=== PATIENT | female | born 1950 | race Caucasian/White ===

== ENCOUNTER 2016-11-29 16:16 | Inpatient (IN) | payer MEDICARE ==
[~2016-11-29] VITALS: Ht 152.4 cm; Wt 65.9 kg
--- NOTE | ~2016-11-29 | PR ---
[place], [place] PROGRESS NOTE NAME: RALEIGH VENCES UNIT #: [id number] ROOM: 528 DOCTOR: SANIYA SCHROEDER MD BIRTHDATE: [birth year] DOS: 12/01/2016 SUBJECTIVE: The patient is headed for MRI study of her brain. She still continues to complain of numbness in her left face and left upper extremity off and on. No weakness or paralysis. OBJECTIVE: VITAL SIGNS: Blood pressure 141/62, heart rate 62 beats and breathing 20 times per minute, temperature 98 degrees Fahrenheit. GENERAL APPEARANCE: The patient is alert and oriented x 3, in no visible distress. HEENT AND NECK: Exam within normal limits. CARDIOVASCULAR SYSTEM: Heart rate is regular in rate and rhythm. S1 and S2 normally audible. LUNGS: Clear to auscultation. ABDOMEN: Soft, nontender. No obvious organomegaly. Bowel sounds are present. EXTREMITIES: Without significant cyanosis or edema. IMPRESSION: 1. No weakness or paralysis. She continues to complain of off and on numbness in her left face and left upper extremity. The patient does have small blood vessel disease in her brain, but carotid arterial Dopplers did not show any critical stenosis and I am waiting for MRI of the brain, which is being performed today and I am continuing her IV heparin. If MRI of the brain is normal, her heparin will be discontinued. I will also consider sending her to the Stroke Center at [facility] in case she shows some signs of weakness, but this morning, I had a good discussion with the patient and her and both denied the patient ever having a left-sided face droop or left upper or lower extremity weakness, just difficulty in walking and generalized weakness, but no seizures were observed and no obvious possibility of the patient being postictal. 2. Suspected transient ischemic attacks but not confirmed, no weakness or paralysis. 3. Benign essential hypertension with controlled blood pressures. 4. Generalized anxiety disorder. The patient has been started on buspirone. 5. Hypothyroidism. The patient is being treated with supplements. 6. The patient is also on physical therapy. [place], [place] PROGRESS NOTE NAME: RALEIGH VENCES UNIT #: [id number] ROOM: 528 DOCTOR: SANIYA SCHROEDER MD BIRTHDATE: [birth year] SANIYA SCHROEDER MD CM:PNCHIKA [id number] SANIYA SCHROEDER MD 12/01/16 2302 interface
--- NOTE | ~2016-11-29 | DS ---
[place], [place] DISCHARGE SUMMARY NAME: RALEIGH VENCES [facility] #: [id number] UNIT #: [id number] ROOM: 528 DOCTOR: SANIYA SCHROEDER MD BIRTHDATE: [birth year] DOS: 12/02/2016 DISCHARGE DIAGNOSES: 1. The patient with multiple plaque-like lesions predominantly in the white matter compatible with ischemic stroke, cannot rule out multiple sclerosis. 2. Recurrent numbness in left face, left upper extremity and left lower extremity with some difficulty in walking, which has improved. 3. Benign essential hypertension. 4. Generalized anxiety disorder. 5. Hypothyroidism. 6. History of hysterectomy. 7. History of gastroesophageal reflux disease and hiatal hernia. HOSPITAL COURSE: The patient presented with recurrent numbness in the left face, left upper extremity and left lower extremity with difficulty with walking, which started prior to coming to the hospital. The symptoms are going on for about a day prior to the patient coming to the Emergency Department. The patient's symptoms lasted only a few minutes at a time and she was quite anxious. CT scan of the head without contrast performed through the Emergency Department showed mild periventricular small vessel changes which are chronic. No acute abnormality. The patient was admitted and since there is recurrent symptoms continued, I have started on IV heparin, performed carotid arterial Dopplers, which showed less than 50% stenosis. An echocardiogram was performed, which did not show any source of thromboembolism. Finally, an MRI of the brain was performed, which showed multiple white matter plaques, possible ischemic strokes, but could not rule out multiple sclerosis. I called [facility] and spoke with Dr. Jacobs at the Stroke Center and I am transferring the patient under his care for further evaluation by a neurologist. We have no neurologist available at [facility] [place], where the patient is presently admitted. Case was discussed with him in full detail and will send him all testing on reports, and formal reports with the records going with the patient. The patient will be transferred by an ambulance in stable condition and will be continued on IV heparin. The patient's cardiac enzymes were also checked and were normal. LABORATORY DATA: CBC was normal. Blood cultures were negative. Serum electrolytes were normal. Lactic acid level was normal. The patient's last PTT was 68.3 on heparin. DISCHARGE MANAGEMENT: IV heparin protocol, lisinopril 5 mg daily, hydrochlorothiazide 25 mg daily, levothyroxine 50 mcg daily, Cymbalta 30 mg daily, atenolol 100 mg b.i.d., amitriptyline 75 mg daily, I have given patient buspirone starting this admission for anxiety 10 mg b.i.d. She was also kept on ceftriaxone 1 gram IV daily and she was already taking at home Vicodin twice a day as needed for pain. The patient is being transferred to [facility] Stroke Center under care of Dr. Jacobs. [place], [place] DISCHARGE SUMMARY NAME: RALEIGH VENCES UNIT #: [id number] ROOM: 528 DOCTOR: SANIYA SCHROEDER MD BIRTHDATE: [birth year] SANIYA SCHROEDER MD CM:DISCHARG [id number] [phone] SANIYA SCHROEDER MD 12/02/161943 interface
--- NOTE | ~2016-11-29 | WRIGHTHP ---
[place], [place] PATIENT HISTORY AND PHYSICAL EXAM NAME: RALEIGH VENCES [facility] #: [id number] UNIT #: [id number] ROOM: 528 DOCTOR: SANIYA SCHROEDER MD BIRTHDATE: [birth year] DOS: 11/29/2016 HISTORY OF PRESENT ILLNESS: The patient is a 66-year-old female with a past medical history of benign essential hypertension, hypothyroidism, hiatal hernia and gastroesophageal reflux disease, history of hysterectomy. The patient presented to the Emergency Department at [facility] with complaints of recurrent numbness involving her left face. Some family reported left-sided facial droop, some numbness in the left upper extremity off and on with weakness and left lower extremity weakness with difficulty with walking starting yesterday. The sensation lasted a few minutes and then resolved and after that she feels somewhat weak. The patient also has been quite anxious and does have anxiety issues, which have improved with use of Cymbalta. Apparently, she also complains of some blurring in her left eye. The patient recommended for admission and further management. After admission, I kept on aspirin. Check carotid arterial Dopplers and as she got recurrent symptoms of left-sided weakness and numbness. I also started on intravenous heparin. The patient states she feels like this when she is quite anxious. No chest pain, no shortness of breath. No other GI or urinary symptoms. The patient's diagnosed as having TIA in the Emergency Department and after which she was admitted to a monitored bed. SOCIAL HISTORY: Denies smoking cigarettes, alcohol and drug abuse. HOME MEDICATIONS: Lisinopril, hydrochlorothiazide, levothyroxine, Cymbalta, atenolol, amitriptyline. ALLERGIES: No known drug allergies. FAMILY HISTORY: Noncontributory. PHYSICAL EXAMINATION: GENERAL: Alert and oriented x3. HEENT AND NECK: Extraocular movements are intact. Sclerae are anicteric. Oral mucosa is moist and clean. No obvious facial weakness. Neck is supple without any lymphadenopathy. No thyromegaly. No JVD. No carotid arterial bruits. LUNGS: Clear to auscultation. No wheezing. No rhonchi. CARDIOVASCULAR SYSTEM: Heart rate is regular in rate and rhythm. S1 and S2 normally audible. No significant murmur or any other abnormal cardiac sounds. ABDOMEN: Soft, nontender. No obvious organomegaly. Bowel sounds are present. No obvious herniation. EXTREMITIES: Without significant cyanosis or edema. Warm to touch. CENTRAL NERVOUS SYSTEM: Alert and oriented x 3. Cranial nerves II-XII are intact. Speech is normal. The patient is able to move all extremities. Normal muscle strength. Deep tendon reflexes are equal on both sides. Plantars were downgoing. LABORATORY DATA: Carotid arterial Dopplers showed less than 50% stenosis. Urine cultures were negative. Cardiac enzymes were negative. CT of the head showed mild periventricular chronic small vessel disease. Normal serum electrolytes. [place], [place] PATIENT HISTORY AND PHYSICAL EXAM NAME: RALEIGH VENCES [facility] #: [id number] UNIT #: [id number] ROOM: 528 DOCTOR: SANIYA SCHROEDER MD BIRTHDATE: [birth year] IMPRESSION: 1. The patient with TIAs with recurrent symptoms, which could also be related to anxiety. I will start her on buspirone. Carotid arterial Dopplers were without any critical stenosis. 2. I will check MRI of her brain tomorrow and continue her on heparin. The patient has worked with physical therapy and is ambulating normally. 3. Benign essential hypertension with some episodes of elevated blood pressures, and she was very anxious. 4. Hypothyroidism for which she was continued on her thyroid supplements. 5. The patient worked with physical therapy and was ambulating well. SANIYA SCHROEDER MD CM:HISPHYS:PATIENT HISTORY AND PHYSICAL EXAMINATION [id number] [phone] SANIYA SCHROEDER MD 11/30/162045 interface
[~2016-11-29 16:16] MED LIST: ATENOLOL25 MG PO; DITROPAN5 MG PO; HYDROCODONE BIT1 T11 PO; HYDRODIURIL25 MG PO; PERCOCET 325 MG1 TA2 PO; SYNTHROID0.1 MG PO
[2016-11-29 16:37] VITALS: BP 165/97
[2016-11-29] MEDS ORDERED: DULOXETINE HCL30 MG PO (16:37)
[2016-11-29] MEDS ORDERED: LISINOPRIL5 MG PO (16:38)
[2016-11-29] MEDS ORDERED: AMITRIPTYLINE H75 MG PO (16:38)
[2016-11-29 17:28] LABS: BASO % 0.4 % (0.0-1.0); EOS # 0.2 10*3/uL (0.0-0.4); EOS % 2.1 % (1.0-4.0); HEMATOCRIT 39.1 % (37.0-47.0); HEMOGLOBIN 13.4 g/dl (12.0-16.0); IG # 0.1 10*3/uL (0.0-0.1); LYMPH # 2.7 10*3/uL (1.3-4.4); LYMPH % 24.2 % (27.0-41.0); MEAN CELL VOLUME 89.9 fl (81.0-99.0); MEAN CORPUSCULAR HGB 30.8 pg (27.0-31.0); MEAN CORPUSCULAR HGB CONC 34.3 g/dl (33.0-37.0); MONO # 0.9 10*3/uL (0.1-1.0); NEUT # 7.2 10*3/uL (2.3-7.9); NEUT % 64.7 % (47.0-73.0); PLATELET COUNT AUTOMATED 293 10*3/uL (130-400); RED BLOOD COUNT 4.35 10*6/uL (4.10-5.10); RED CELL DISTRI WIDTH 12.4 % (0-14.5); WHITE BLOOD COUNT 11.2 10*3/uL (4.8-10.8)
[2016-11-29 17:38] LABS: PROTHROMBIN TIME 10.5 SECONDS (9.0-12.4)
[2016-11-29 17:45] LABS: BILIRUBIN NEGATIVE (NEGATIVE); BLOOD NEGATIVE (NEGATIVE); CLARITY SL CLOUDY (CLEAR); COLOR YELLOW (YELLOW); GLUCOSE NEGATIVE (NEGATIVE); KETONE NEGATIVE (NEGATIVE); LEUKO ESTERASE 1+ (NEGATIVE); NITRITE NEGATIVE (NEGATIVE); PROTEIN NEGATIVE (NEGATIVE); SPECIFIC GRAVITY <= 1.005 (1.005-1.030); UROBILINOGEN 0.2 E.U./dl (0.2-1.0)
[2016-11-29 17:50] LABS: ALKALINE PHOSPHATASE 73 U/L (45-117); BILIRUBIN, TOTAL 0.2 mg/dl (0.2-1.0); BUN 15 mg/dl (7-24); C-REACTIVE PROTEIN 0.93 MG/DL (0-0.3); CARBON DIOXIDE 27 mmol/L (21-32); CHLORIDE 100 mmol/L (98-107); CKMB 1.2 ng/ml (0.5-3.6); CPK 86 U/L (26-192); EST GLOM FILT AFRICAN AMERICAN > 60 ml/min; GLUCOSE 115 mg/dL (65-99); MAGNESIUM 2.2 mg/dL (1.5-2.1); POTASSIUM 4.3 mmol/L (3.5-5.1); SGOT/AST 20 IU/L (3-35); SGPT/ALT 45 U/L (12-78); SODIUM 137 mmol/L (136-145); TOTAL PROTEIN 7.8 gm/dL (6.4-8.2)
[2016-11-29 17:51] LABS: TROPONIN I < 0.015 ng/ml (<0.045)
[2016-11-29 17:56] LABS: BACTERIA TRACE; EPITHELIAL CELLS TNTC; RBC 0-2 rbc/hpf (0-2); URINE REFLEX COMMENT YES (NO)
[2016-11-29 20:04] VITALS: BP 196/98
[2016-11-29 20:30] VITALS: BP 165/75
[2016-11-29] MEDS ORDERED: Synthroid,Levo50 MCG PO (20:50)
[2016-11-29] MEDS ORDERED: NORCO 7.5-3251 EACH PO (20:54)
[2016-11-29 22:24] VITALS: BP 170/83
[2016-11-30] VITALS: BP 123/53
[2016-11-30 04:00] VITALS: BP 132/50
[2016-11-30 06:10] LABS: BASO % 0.2 % (0.0-1.0); EOS # 0.3 10*3/uL (0.0-0.4); EOS % 2.6 % (1.0-4.0); HEMATOCRIT 37.8 % (37.0-47.0); HEMOGLOBIN 12.7 g/dl (12.0-16.0); IG # 0.1 10*3/uL (0.0-0.1); LYMPH # 2.1 10*3/uL (1.3-4.4); LYMPH % 21.1 % (27.0-41.0); MEAN CELL VOLUME 90.2 fl (81.0-99.0); MEAN CORPUSCULAR HGB 30.3 pg (27.0-31.0); MEAN CORPUSCULAR HGB CONC 33.6 g/dl (33.0-37.0); MEAN PLATELET VOLUME 9.3 fl (9.6-12.3); MONO # 0.7 10*3/uL (0.1-1.0); MONO % 7.3 % (3.0-9.0); NEUT # 6.6 10*3/uL (2.3-7.9); NEUT % 67.9 % (47.0-73.0); PLATELET COUNT AUTOMATED 258 10*3/uL (130-400); RED BLOOD COUNT 4.19 10*6/uL (4.10-5.10); RED CELL DISTRI WIDTH 12.3 % (0-14.5); WHITE BLOOD COUNT 9.7 10*3/uL (4.8-10.8)
[2016-11-30 08:00] VITALS: BP 150/68
[2016-11-30 12:00] VITALS: BP 122/56
[2016-11-30 16:00] VITALS: BP 104/67
[2016-11-30 20:00] VITALS: BP 151/68
[2016-12-01] VITALS: BP 133/64
[2016-12-01 08:00] VITALS: BP 141/62
[2016-12-01 12:00] VITALS: BP 142/59
[2016-12-01 16:00] VITALS: BP 137/65
[2016-12-01 20:00] VITALS: BP 121/56
[2016-12-02] VITALS: BP 113/52
[2016-12-02 06:17] LABS: BASO % 0.5 % (0.0-1.0); EOS # 0.3 10*3/uL (0.0-0.4); EOS % 3.9 % (1.0-4.0); HEMATOCRIT 36.6 % (37.0-47.0); HEMOGLOBIN 12.3 g/dl (12.0-16.0); IG # 0.1 10*3/uL (0.0-0.1); LYMPH # 2.5 10*3/uL (1.3-4.4); MEAN CELL VOLUME 90.1 fl (81.0-99.0); MEAN CORPUSCULAR HGB 30.3 pg (27.0-31.0); MEAN CORPUSCULAR HGB CONC 33.6 g/dl (33.0-37.0); MEAN PLATELET VOLUME 9.8 fl (9.6-12.3); MONO # 0.7 10*3/uL (0.1-1.0); MONO % 8.3 % (3.0-9.0); NEUT # 5.1 10*3/uL (2.3-7.9); NEUT % 58.3 % (47.0-73.0); PLATELET COUNT AUTOMATED 275 10*3/uL (130-400); RED BLOOD COUNT 4.06 10*6/uL (4.10-5.10); RED CELL DISTRI WIDTH 12.3 % (0-14.5); WHITE BLOOD COUNT 8.8 10*3/uL (4.8-10.8)
[2016-12-02 08:00] VITALS: BP 124/50
[2016-12-02 12:00] VITALS: BP 130/68
[2016-12-02 16:00] VITALS: BP 146/76
[2016-12-02 20:00] VITALS: BP 167/73
== END 2016-12-02 22:31 | disposition short-term general hospital (02) | DRG 65 ==
LOC: ED 16:16 → 5E 19:38 → EDHOLD 19:38 → 5E 20:29
PROVIDERS: Internal Medicine; Nurse Practitioner Family
DX: I63.9 Cerebral infarction, unspecified (principal); N39.0 Urinary tract infection, site not specified; G35 Multiple sclerosis; I10 Essential (primary) hypertension; R29.810 Facial weakness; E03.9 Hypothyroidism, unspecified; F41.1 Generalized anxiety disorder; K21.9 Gastro-esophageal reflux disease without esophagitis; K44.9 Diaphragmatic hernia without obstruction or gangrene; Z79.899 Other long term (current) drug therapy; Z90.710 Acquired absence of both cervix and uterus; Z79.01 Long term (current) use of anticoagulants

== ENCOUNTER 2016-12-11 12:52 | Emergency (ER) | payer MEDICARE ==
[~2016-12-11] VITALS: Ht 152.4 cm; Wt 65.8 kg
[~2016-12-11 12:52] MED LIST changes: +AMITRIPTYLINE H75 MG PO; +DULOXETINE HCL30 MG PO; +LISINOPRIL5 MG PO; +NORCO 7.5-3251 EACH PO; +Synthroid,Levo50 MCG PO
[2016-12-11] MEDS ORDERED: ECOTRIN81 M1 PO (13:04)
[2016-12-11 13:59] LABS: BASO % 0.1 % (0.0-1.0); EOS # 0.8 10*3/uL (0.0-0.4); EOS % 8.4 % (1.0-4.0); HEMATOCRIT 39.4 % (37.0-47.0); HEMOGLOBIN 13.2 g/dl (12.0-16.0); IG # 0.1 10*3/uL (0.0-0.1); LYMPH # 1.7 10*3/uL (1.3-4.4); LYMPH % 18.3 % (27.0-41.0); MEAN CELL VOLUME 90.6 fl (81.0-99.0); MEAN CORPUSCULAR HGB 30.3 pg (27.0-31.0); MEAN CORPUSCULAR HGB CONC 33.5 g/dl (33.0-37.0); MEAN PLATELET VOLUME 9.2 fl (9.6-12.3); MONO # 0.7 10*3/uL (0.1-1.0); MONO % 7.7 % (3.0-9.0); NEUT # 6.1 10*3/uL (2.3-7.9); NEUT % 64.5 % (47.0-73.0); PLATELET COUNT AUTOMATED 292 10*3/uL (130-400); RED BLOOD COUNT 4.35 10*6/uL (4.10-5.10); RED CELL DISTRI WIDTH 12.5 % (0-14.5); WHITE BLOOD COUNT 9.4 10*3/uL (4.8-10.8)
[2016-12-11 14:14] LABS: ALBUMIN 3.9 gm/dl (3.1-4.5); ALKALINE PHOSPHATASE 67 U/L (45-117); BILIRUBIN, TOTAL 0.3 mg/dl (0.2-1.0); BUN 14 mg/dl (7-24); CARBON DIOXIDE 30 mmol/L (21-32); CHLORIDE 97 mmol/L (98-107); EST GLOM FILT AFRICAN AMERICAN > 60 ml/min; GLUCOSE 85 mg/dL (65-99); SGOT/AST 22 IU/L (3-35); SGPT/ALT 50 U/L (12-78); SODIUM 133 mmol/L (136-145); TOTAL PROTEIN 7.6 gm/dL (6.4-8.2)
[2016-12-11 14:16] LABS: PROTHROMBIN TIME 10.5 SECONDS (9.0-12.4)
[2016-12-11] MEDS ORDERED: PLAVIX75 M1 PO (14:56)
== END 2016-12-11 15:00 | disposition home or self-care (01) ==
LOC: ED 12:52
PROVIDERS: Nurse Practitioner Family
DX: L27.0 Generalized skin eruption due to drugs and medicaments taken internally (principal); F17.200 Nicotine dependence, unspecified, uncomplicated; Z79.82 Long term (current) use of aspirin

== ENCOUNTER → 2018-08-10 | Outpatient (CLI) | payer MEDICARE ==
[~2018-08-10] MED LIST changes: +ECOTRIN81 M1 PO; +PLAVIX75 M1 PO
== END | disposition home or self-care (01) ==
LOC: MRI 07-10 13:00
DX: M47.894 Other spondylosis, thoracic region (principal); M47.892 Other spondylosis, cervical region

== ENCOUNTER 2019-09-20 18:28 | Inpatient (IN) | payer MEDICARE ==
[~2019-09-20] VITALS: Ht 152.4 cm; Wt 66.7 kg
[2019-09-20 18:35] VITALS: BP 139/73
[2019-09-20 20:05] LABS: HEMOGLOBIN 16.7 g/dl (12.0-16.0); MEAN CELL VOLUME 90.7 fl (81.0-99.0); MEAN CORPUSCULAR HGB 30.9 pg (27.0-31.0); MEAN CORPUSCULAR HGB CONC 34.1 g/dl (33.0-37.0); MEAN PLATELET VOLUME 10.4 fl (9.6-12.3); PLATELET COUNT AUTOMATED 314 10*3/uL (130-400); RED CELL DISTRI WIDTH 12.2 % (0-14.5); WHITE BLOOD COUNT 21.4 10*3/uL (4.8-10.8)
[2019-09-20 20:27] LABS: ALBUMIN 4.2 gm/dl (3.1-4.5); CREATININE 2.54 mg/dL (0.55-1.02); POTASSIUM 4.3 mmol/L (3.5-5.1); TOTAL PROTEIN 8.4 gm/dL (6.4-8.2)
[2019-09-20 20:28] LABS: BASOPHILS 1 % (0-1); TOTAL CELLS COUNTED 100 #CELLS
[2019-09-20 20:29] LABS: PLATELET SUFFICIENCY NORMAL (NORMAL)
[2019-09-20 20:49] VITALS: BP 144/43
[2019-09-20] MEDS ORDERED: 'TENORMIN50 MG PO (21:14)
[2019-09-20 23:21] VITALS: BP 137/60
[2019-09-21 06:18] VITALS: BP 141/58
[2019-09-21 09:00] VITALS: BP 132/55
[2019-09-21 09:14] LABS: BASO % 0.3 % (0.0-1.0); EOS # 0.1 10*3/uL (0.0-0.4); EOS % 1.3 % (1.0-4.0); HEMATOCRIT 39.1 % (37.0-47.0); HEMOGLOBIN 13.1 g/dl (12.0-16.0); LYMPH # 1.4 10*3/uL (1.3-4.4); LYMPH % 16.2 % (27.0-41.0); MEAN CELL VOLUME 90.9 fl (81.0-99.0); MEAN CORPUSCULAR HGB 30.5 pg (27.0-31.0); MEAN CORPUSCULAR HGB CONC 33.5 g/dl (33.0-37.0); MEAN PLATELET VOLUME 10.2 fl (9.6-12.3); MONO # 0.7 10*3/uL (0.1-1.0); MONO % 7.8 % (3.0-9.0); NEUT # 6.4 10*3/uL (2.3-7.9); NEUT % 73.8 % (47.0-73.0); PLATELET COUNT AUTOMATED 244 10*3/uL (130-400); RED CELL DISTRI WIDTH 12.2 % (0-14.5); WHITE BLOOD COUNT 8.6 10*3/uL (4.8-10.8)
[2019-09-21 09:29] LABS: CREATININE 2.1 mg/dL (0.55-1.02)
[2019-09-21 12:00] VITALS: BP 129/60
[2019-09-21 16:00] VITALS: BP 114/59
[2019-09-21 20:00] VITALS: BP 124/46
[2019-09-22] VITALS: BP 139/60
[2019-09-22 07:54] LABS: BASO % 0.2 % (0.0-1.0); EOS # 0.1 10*3/uL (0.0-0.4); EOS % 1.3 % (1.0-4.0); HEMATOCRIT 34.2 % (37.0-47.0); HEMOGLOBIN 11.4 g/dl (12.0-16.0); LYMPH # 1.9 10*3/uL (1.3-4.4); LYMPH % 22.4 % (27.0-41.0); MEAN CELL VOLUME 93.4 fl (81.0-99.0); MEAN CORPUSCULAR HGB 31.1 pg (27.0-31.0); MEAN CORPUSCULAR HGB CONC 33.3 g/dl (33.0-37.0); MEAN PLATELET VOLUME 9.6 fl (9.6-12.3); MONO # 0.5 10*3/uL (0.1-1.0); MONO % 6.4 % (3.0-9.0); NEUT # 5.9 10*3/uL (2.3-7.9); NEUT % 69.3 % (47.0-73.0); PLATELET COUNT AUTOMATED 201 10*3/uL (130-400); RED BLOOD COUNT 3.66 10*6/uL (4.10-5.10); RED CELL DISTRI WIDTH 12.2 % (0-14.5); WHITE BLOOD COUNT 8.5 10*3/uL (4.8-10.8)
[2019-09-22 08:00] VITALS: BP 150/78; BP 170/62
[2019-09-22 08:10] LABS: CREATININE 1.14 mg/dL (0.55-1.02); POTASSIUM 3.6 mmol/L (3.5-5.1)
[2019-09-22] MEDS ORDERED: LISINOPRIL20 MG PO (09:19)
[2019-09-22 12:00] VITALS: BP 120/52
[2019-09-22 16:00] VITALS: BP 119/54
[2019-09-22 20:00] VITALS: BP 135/51
[2019-09-23] VITALS: BP 118/50
[2019-09-23 08:00] VITALS: BP 160/60
[2019-09-23] MEDS ORDERED: AUGMENTIN 875-875 MG PO (14:32)
[2019-09-23] MEDS ORDERED: CIPRO500 MG PO (14:39)
== END 2019-09-23 15:15 | disposition home or self-care (01) | DRG 682 ==
LOC: ED 18:28 → EDHOLD 20:54 → 4E 09-21 09:03
PROVIDERS: Nurse Practitioner Family; ADMIT Internal Medicine
DX: N17.0 Acute kidney failure with tubular necrosis (principal); J18.9 Pneumonia, unspecified organism; F33.1 Major depressive disorder, recurrent, moderate; A08.4 Viral intestinal infection, unspecified; E86.0 Dehydration; N18.9 Chronic kidney disease, unspecified; J98.01 Acute bronchospasm; I10 Essential (primary) hypertension; G89.29 Other chronic pain; M48.02 Spinal stenosis, cervical region; M79.7 Fibromyalgia; E03.9 Hypothyroidism, unspecified; K21.0 Gastro-esophageal reflux disease with esophagitis; K44.9 Diaphragmatic hernia without obstruction or gangrene; Z86.73 Personal history of transient ischemic attack (TIA), and cerebral infarction without residual deficits; Z88.6 Allergy status to analgesic agent; Z90.710 Acquired absence of both cervix and uterus

== ENCOUNTER 2020-09-24 14:01 | Emergency (ER) | payer MEDICARE ==
[~2020-09-24] VITALS: Ht 144.7 cm; Wt 67.1 kg
[~2020-09-24 14:01] MED LIST changes: +'TENORMIN50 MG PO; +AUGMENTIN 875-875 MG PO; +CIPRO500 MG PO; +LISINOPRIL20 MG PO
[2020-09-24 15:14] LABS: BASO # 0.1 10*3/uL (0.0-0.1); BASO % 0.5 % (0.0-1.0); EOS # 0.2 10*3/uL (0.0-0.4); EOS % 1.4 % (1.0-4.0); LYMPH # 2.3 10*3/uL (1.3-4.4); LYMPH % 19.3 % (27.0-41.0); MEAN CELL VOLUME 93.5 fl (81.0-99.0); MEAN CORPUSCULAR HGB 30.7 pg (27.0-31.0); MEAN CORPUSCULAR HGB CONC 32.8 g/dl (33.0-37.0); MEAN PLATELET VOLUME 9.5 fl (9.6-12.3); MONO # 0.6 10*3/uL (0.1-1.0); MONO % 5.3 % (3.0-9.0); NEUT # 8.7 10*3/uL (2.3-7.9); NEUT % 72.6 % (47.0-73.0); PLATELET COUNT AUTOMATED 310 10*3/uL (130-400); RED BLOOD COUNT 4.17 10*6/uL (4.10-5.10); RED CELL DISTRI WIDTH 12.8 % (0-14.5); WHITE BLOOD COUNT 11.9 10*3/uL (4.8-10.8)
[2020-09-24 15:25] LABS: ACT PARTIAL THROMBO TIME 25.6 SECONDS (20.0-32.1)
[2020-09-24 15:30] LABS: ALBUMIN 3.7 gm/dl (3.1-4.5); ALKALINE PHOSPHATASE 75 U/L (45-117); BUN 20 mg/dl (7-24); CHLORIDE 103 mmol/L (98-107); CREATININE 0.97 mg/dL (0.55-1.02); LIPASE 68 U/L (73-393); POTASSIUM 3.8 mmol/L (3.5-5.1); SGOT/AST 29 IU/L (3-35); SGPT/ALT 61 U/L (12-78); SODIUM 135 mmol/L (136-145); TOTAL PROTEIN 7.8 gm/dL (6.4-8.2)
[2020-09-24 15:33] LABS: TROPONIN I < 0.015 ng/ml (<0.045)
== END 2020-09-24 16:50 | disposition home or self-care (01) ==
LOC: ED 14:01
PROVIDERS: Emergency Medicine
DX: S22.32XA Fracture of one rib, left side, initial encounter for closed fracture (principal); Z88.6 Allergy status to analgesic agent; Z79.899 Other long term (current) drug therapy; Z79.82 Long term (current) use of aspirin; X58.XXXA Exposure to other specified factors, initial encounter; Y93.89 Activity, other specified; Y92.89 Other specified places as the place of occurrence of the external cause; Y99.8 Other external cause status

== ENCOUNTER → 2020-12-11 | Outpatient (CLI) | payer MEDICARE ==
[2020-12-11 13:56] LABS: CREATININE 0.93 mg/dL (0.55-1.02)
== END | disposition home or self-care (01) ==
LOC: CT 12-04 14:00 → LAB 13:16 → CT 14:00
PROVIDERS: ATTEND Internal Medicine
DX: K76.0 Fatty (change of) liver, not elsewhere classified (principal); K44.9 Diaphragmatic hernia without obstruction or gangrene; J98.11 Atelectasis

== ENCOUNTER → 2021-04-22 | Outpatient (CLI) | payer MEDICARE | END | disposition home or self-care (01) | LOC: US 12:52 → MRI 14:00 | PROVIDERS: ATTEND Orthopaedic Surgery | DX: S83.241A Other tear of medial meniscus, current injury, right knee, initial encounter (principal); M17.11 Unilateral primary osteoarthritis, right knee; I70.203 Unspecified atherosclerosis of native arteries of extremities, bilateral legs; M89.8X6 Other specified disorders of bone, lower leg; X58.XXXA Exposure to other specified factors, initial encounter; Y93.89 Activity, other specified; Y92.89 Other specified places as the place of occurrence of the external cause; Y99.8 Other external cause status ==

== ENCOUNTER → 2022-03-29 | Outpatient (CLI) | payer MEDICARE ==
[~2022-03-29] MED LIST changes: +CLONIDINE0.2 MG PO; +NEURONTIN300 MG PO
[2022-03-29 08:02] LABS: BASO # 0.1 10*3/uL (0.0-0.1); BASO % 0.5 % (0.0-1.0); EOS # 0.3 10*3/uL (0.0-0.4); EOS % 2.9 % (1.0-4.0); HEMATOCRIT 40.4 % (37.0-47.0); LYMPH # 1.8 10*3/uL (1.3-4.4); LYMPH % 17.6 % (27.0-41.0); MEAN CELL VOLUME 94.6 fl (81.0-99.0); MEAN CORPUSCULAR HGB 30.7 pg (27.0-31.0); MEAN CORPUSCULAR HGB CONC 32.4 g/dl (33.0-37.0); MEAN PLATELET VOLUME 9.8 fl (9.6-12.3); MONO # 0.6 10*3/uL (0.1-1.0); MONO % 6.1 % (3.0-9.0); NEUT # 7.4 10*3/uL (2.3-7.9); NEUT % 72.2 % (47.0-73.0); PLATELET COUNT AUTOMATED 267 10*3/uL (130-400); RED BLOOD COUNT 4.27 10*6/uL (4.10-5.10); RED CELL DISTRI WIDTH 12.9 % (0-14.5); WHITE BLOOD COUNT 10.3 10*3/uL (4.8-10.8)
[2022-03-29 08:02] LABS: BILIRUBIN Negative (Negative); BLOOD Negative (Negative); CLARITY Clear (Clear); COLOR Yellow (Yellow); GLUCOSE Negative (Negative); KETONE Negative (Negative); LEUKO ESTERASE 1+ (Negative); NITRITE Negative (Negative); PH 6.5 (4.5-8.0); SPECIFIC GRAVITY 1.015 (1.001-1.030)
[2022-03-29 08:14] LABS: BACTERIA 1+; EPITHELIAL CELLS TNTC; RBC 0-2 rbc/hpf (0-2)
[2022-03-29 08:15] LABS: ACT PARTIAL THROMBO TIME 26.5 SECONDS (20.0-32.1); INTERNATIONAL NORM RATIO 0.9 (2.0-3.5)
[2022-03-29 08:18] LABS: ALKALINE PHOSPHATASE 74 U/L (45-117); BUN 13 mg/dl (7-24); CHLORIDE 104 mmol/L (98-107); CREATININE 0.95 mg/dL (0.55-1.02); POTASSIUM 4.9 mmol/L (3.5-5.1); SGOT/AST 23 IU/L (3-35); SGPT/ALT 31 U/L (12-78); SODIUM 136 mmol/L (136-145); TOTAL PROTEIN 7.1 gm/dL (6.4-8.2)
== END ==
LOC: LAB 04:10 → CARD 04:10
PROVIDERS: Orthopaedic Surgery; ATTEND Internal Medicine
DX: Z01.818 Encounter for other preprocedural examination (principal); M17.11 Unilateral primary osteoarthritis, right knee; M25.361 Other instability, right knee; M23.91 Unspecified internal derangement of right knee; I10 Essential (primary) hypertension; Z86.73 Personal history of transient ischemic attack (TIA), and cerebral infarction without residual deficits; R79.1 Abnormal coagulation profile; E11.9 Type 2 diabetes mellitus without complications; R07.89 Other chest pain; R53.81 Other malaise